=== PATIENT | male | born 1995 | race Caucasian/White ===

== ENCOUNTER 2016-03-16 22:28 | Emergency (ER) | payer OTHER ==
--- NOTE | 2016-03-17 00:24 | UC ---
Laceration HPI - HPI Summary HPI Summary: WHILE TOASTING TWO BOTTLES ONE HOUR AGO, ONE OF THEM BROKE, AND CUT RIGHT THUMB. HERE WITH SOBER FRIENDS. HAD 6 DRINKS OVER THE COURSE OF AFTERNOON/ EVENING. NO OTHER INJURIES. NO BLEEDING DISORDERS. ABLE TO MOVE THUMB. HAS FULL SENSATION. - History Of Current Complaint Chief Complaint: EDLacSutureRecheck Stated Complaint: RIGHT THUMB LAC Time Seen by Provider: 03/16/16 22:35 Hx Obtained From: Patient, Other: - TWO SCHOOL FRIENDS Laceration Location: Finger Mechanism Of Injury: Sharp Trauma Onset/Duration: Sudden Onset Severity: Mild Pain Intensity: 0 Aggravating Factors: Nothing Related History: Dominant Hand Right - Allergies/Home Medications Allergies/Adverse Reactions: Allergies Allergy/AdvReac Type Severity Reaction Status Date / Time No Known Allergies Allergy Verified 12/02/14 15:54 PMH/Surg Hx/FS Hx/Imm Hx Previously Healthy: Yes Psychological History Of: Reports: Depression - Surgical History Surgical History: Yes Surgery Procedure, Year, and Place: wisdom teeth extraction 2-3 years ago - Family History Known Family History: Positive: Unknown Negative: Blood Disorder - Social History Occupation: Student Lives: With Family Alcohol Use: Rare Substance Use Type: None Smoking Status (MU): Never Smoked Tobacco Have You Smoked in the Last Year: No - Immunization History Most Recent Influenza Vaccination: unsure Most Recent Tetanus Shot: up to date Most Recent Pneumonia Vaccination: never Review of Systems Constitutional: Negative Skin: Other - LACERATION RIGHT THUMB Eyes: Negative ENT: Negative Respiratory: Negative Cardiovascular: Negative Gastrointestinal: Negative Genitourinary: Negative Motor: Negative Neurovascular: Negative Musculoskeletal: Negative Neurological: Negative Psychological: Negative All Other Systems Reviewed And Are Negative: Yes Physical Exam Triage Information Reviewed: Yes Appearance: Well-Appearing, No Pain Distress, Well-Nourished Vital Signs: Initial Vital Signs Temp 98.2 F 03/16/16 22:36 Pulse 100 03/16/16 22:36 Resp 16 03/16/16 22:36 BP 125/72 03/16/16 22:36 Pulse Ox 99 03/16/16 22:36 Vital Signs Reviewed: Yes Eye Exam: Normal ENT Exam: Normal ENT: Positive: Normal ENT inspection, Hearing grossly normal, TMs normal Dental Exam: Normal Neck exam: Normal Neck: Positive: Supple, Nontender Respiratory Exam: Normal Respiratory: Positive: Chest non-tender, Lungs clear, Normal breath sounds, No respiratory distress Cardiovascular Exam: Normal Cardiovascular: Positive: RRR, No Murmur Abdominal Exam: Normal Musculoskeletal Exam: Normal Musculoskeletal: Positive: Strength Intact, ROM Intact Neurological Exam: Normal Psychological Exam: Normal Psychological: Positive: Normal Response To Family Skin: Positive: Other - LACERATION TO RIGHT THUMB Laceration Repair - Laceration Repair 1 Description: Linear - RIGHT THUMB Laceration Size After Repair: Length (cm) - 2.5, Width (mm) - 10, Depth (mm) - 4 Modified For Repair: No Type Injection: Digital Anesthesia Used: 2.0% Lido Cleansing Completed Via Routine Prep: Yes Irrigation With Pressure Irrigation Device: Yes Closure Material: Sutures - 4 X 4-0 PROLENE Suture Of: Skin Suture Type: Prolene Laceration Course/Dx - Differential Dx - Laceration/Wound Differental Diagnoses: Avulsion, Laceration Provider Diagnoses: LACERATION RIGHT THUMB WITH SUTURE REPAIR Discharge - Discharge Plan Condition: Stable Disposition: HOME Patient Education Materials: Finger Laceration (ED) Referrals: [facility] ARNALDO Boss [Primary Care Provider] - Additional Instructions: PLEASE HAVE SUTURES REMOVED IN TEN DAYS
[2016-03-17 00:35] VITALS: BP 111/80
== END 2016-03-17 00:33 | disposition home or self-care (01) ==
LOC: ED 22:28
DX: S61.011A Laceration without foreign body of right thumb without damage to nail, initial encounter (principal); W45.8XXA Other foreign body or object entering through skin, initial encounter; Y93.9 Activity, unspecified; Y92.9 Unspecified place or not applicable; Y99.9 Unspecified external cause status
CPT/HCPCS: 12001; 99283